=== PATIENT | male | born 1955 | race Caucasian/White ===

== ENCOUNTER → 2016-07-06 | Outpatient (CLI) | payer BC ==
[~2016-07-06] MED LIST: BACTRIM DS1 TAB PO; FENOFIBRATE160 MG PO; FLOMAX0.4 MG PO; GLUCOPHAGE500 MG PO; HUMALOG KW200 UNIT/1 SUB-Q; HYZAAR 50-12.51 TAB PO; LIPITOR20 M1 PO; MELOXICAM15 MG PO; NAPROXEN PO; OXYCODONE-ACET1 EAC1 PO; TRESIBA FL200 UNIT/1 SUB-Q; TYLENOL/COD#31 TAB PO; ULTRAM50 MG PO; [UNRECOGNIZED DRUG - OTHER] PO
--- NOTE | ~2016-07-06 | ENPV ---
Vascular Lower Extremities DVT Study Procedure Demographics Patient Name PALAK ALFRED Date of Study 07/06/2016 JUANIS Patient Number [id number] Gender Male Date of 1955 Age 61 Visit Number [id number] Height Accession Number [id number] Weight Room Number BSA BMI Referring Loy Deshpande MD Physician Physician Physician Ordering Physician Loy Flores [employer] Aide Audio Visual Manager Radha Kevin [facility] Conclusions Summary Left calf vein DVT Procedure Type of Study: Veins:Lower Extremities DVT Study, Venous Duplex Lower Extremity Bilateral. Velocities are measured in cm/s ; Diameters are measured in cm Right Lower Extremities DVT Study Measurements Right 2D and Doppler Measurements + + + + +------+------+ + !Location !Visualized!Compressibility!Thrombosis!Signal!Reflux!Reflux ! ! ! ! ! ! ! !(sec) ! + + + + +------+------+ + !Common !Yes !Yes !None ! ! ! ! !Femoral ! ! ! ! ! ! ! + + + + +------+------+ + Left Lower Extremities DVT Study Measurements Left 2D and Doppler Measurements + + + + +------+------+ + !Location !Visualized!Compressibility!Thrombosis!Signal!Reflux!Reflux ! ! ! ! ! ! ! !(sec) ! + + + + +------+------+ + !GSV Thigh !Yes !Yes !None !Phasic!No ! ! + + + + +------+------+ + !Common !Yes !Yes !None !Phasic!No ! ! !Femoral ! ! ! ! ! ! ! + + + + +------+------+ + !Prox !Yes !Yes !None !Phasic!No ! ! !Femoral ! ! ! ! ! ! ! + + + + +------+------+ + !Mid Femoral!Yes !Yes !None !Phasic!No ! ! + + + + +------+------+ + !Dist !Yes !Yes !None !Phasic!No ! ! !Femoral ! ! ! ! ! ! ! + + + + +------+------+ + !Popliteal !Yes !Yes !None !Phasic!No ! ! + + + + +------+------+ + !Gastroc !Yes !Yes !None !Phasic!No ! ! + + + + +------+------+ + !PTV !Yes !Yes !None !Phasic!No ! ! + + + + +------+------+ + !Peroneal !Yes !No !Sub-acute ! ! ! ! + + + + +------+------+ + Impressions Right Impression The opposing comparison CFV was negative for DVT Left Impression DVT was evident in the peroneal veins of the left calf, appeared Chronic or subacute, and occlusive. Signature dtt: ANJU LOCKWOOD dtmedina: 07/06/16 1807 Physician Self Edit
== END | disposition disaster alternative care site (69) ==
LOC: GCAR 17:34
DX: M25.562 Pain in left knee (principal); I82.4Z2 Acute embolism and thrombosis of unspecified deep veins of left distal lower extremity